=== PATIENT | male | born 1990 | race Caucasian/White ===

== ENCOUNTER 2019-04-24 20:20 | Emergency (ER) | payer MEDICAID, OTHER ==
[~2019-04-24] VITALS: Ht 188 cm; Wt 70.5 kg
[~2019-04-24 20:20] MED LIST: LIDOcaine 1% W/epiNEPHrine 1:100,000 20ml vial ONE
[2019-04-24 20:24] VITALS: BP 128/82
[2019-04-24] MEDS ORDERED: CefTRIAXone 250MG IM Kit w/LIDOcaine IM ONE (21:40)
[2019-04-24] MEDS ORDERED: TETanus/Pertussis (Acell)/Diphther VAC/PF (Tdap-Adult) 0.5ml syringe IMVAC ONE (21:40)
[2019-04-24] MEDS ORDERED: ondansetron 4mg rapidly disintigrating tab PO ONE (21:40)
[2019-04-24] MEDS ORDERED: azithromycin 250mg tablet PO ONE (21:40)
== END 2019-04-24 22:11 | disposition home or self-care (01) ==
LOC: ER 20:21
DX: S01.81XA Laceration without foreign body of other part of head, initial encounter (principal); A64 Unspecified sexually transmitted disease; F12.90 Cannabis use, unspecified, uncomplicated; F17.200 Nicotine dependence, unspecified, uncomplicated; W50.0XXA Accidental hit or strike by another person, initial encounter; Y93.61 Activity, american tackle football; Y92.89 Other specified places as the place of occurrence of the external cause; Y99.9 Unspecified external cause status
CPT/HCPCS: 12011; 36415; 87491; 87591; 90471; 90715; 96372; 99283; J0696

== ENCOUNTER 2019-05-29 21:22 | Emergency (ER) | payer MEDICAID ==
[~2019-05-29] VITALS: Ht 188 cm; Wt 70.0 kg
[2019-05-29 21:26] VITALS: BP 132/73
--- NOTE | 2019-05-29 22:42 | NUR ---
IRAJ APPLIED A SLING TO RIGHT ARM ORDERED.
== END 2019-05-29 22:49 | disposition home or self-care (01) ==
LOC: ER 21:23
DX: S43.101A Unspecified dislocation of right acromioclavicular joint, initial encounter (principal); F12.90 Cannabis use, unspecified, uncomplicated; F10.99 Alcohol use, unspecified with unspecified alcohol-induced disorder; J45.909 Unspecified asthma, uncomplicated; W18.39XA Other fall on same level, initial encounter; Y93.89 Activity, other specified; Y92.89 Other specified places as the place of occurrence of the external cause; Y99.8 Other external cause status; Y90.9 Presence of alcohol in blood, level not specified
CPT/HCPCS: 73030; 99283

== ENCOUNTER 2022-05-12 20:46 | Emergency (ER) | payer MEDICAID ==
[~2022-05-12] VITALS: Ht 188 cm; Wt 70.5 kg
[2022-05-12 20:51] VITALS: BP 147/83
== END 2022-05-12 22:17 | disposition left against medical advice (07) ==
LOC: ER 20:47
DX: R10.9 Unspecified abdominal pain (principal); Z53.21 Procedure and treatment not carried out due to patient leaving prior to being seen by health care provider